=== PATIENT | male | born 2000 | race Asian ===

== ENCOUNTER 2024-11-14 16:42 | Inpatient (IN) | payer BC, OTHER ==
[~2024-11-14] VITALS: Ht 185.4 cm; Wt 74.8 kg
[2024-11-14 17:06] VITALS: O2SAT 100
[2024-11-14 17:49] LABS: HEMATOCRIT. 39.6 % (42.0-52.0); HEMOGLOBIN. 13.6 g/dL (14.0-18.0); MEAN PLATELET VOLUME 7.2 fl (7.4-10.4); PLATELET 227 x1000/uL (130-400); RED BLOOD CELL COUNT 4.48 mill/uL (4.7-6.1); RED CELL DISTRIBUTION WIDTH 13.2 % (11.6-14.6)
[2024-11-14 17:59] LABS: INR 1.0
[2024-11-14 18:03] LABS: CREATININE 0.8 mg/dL (0.6-1.3); UREA NITROGEN BLOOD 7 mg/dL (9-23)
[2024-11-14 18:04] LABS: TROPONIN I HIGH SENSITIVITY < 4 ng/L (3.0-53)
[2024-11-14 18:19] LABS: EOSINOPHILS % MANUAL 4.0 % (0.0-5.0); LYMPHOCYTES % MANUAL 32.0 % (20.0-50.0); MONOCYTES % MANUAL 7.0 % (2.0-8.0); NEUTROPHILS % MANUAL 57.0 % (45.0-75.0); PLATELET ESTIMATE NORMAL
[2024-11-15] MEDS: DEXT 5%/0.45% NACL KCL 20MEQ/L 1,000 ML IV SCH (06:10)
[2024-11-15 06:21] VITALS: BP 99/53; PULSE 65; RESP 16; TEMP 36.8072
[2024-11-15 08:00] VITALS: BP 103/67; PULSE 63; RESP 20; TEMP 36.2; O2SAT 99
[2024-11-15 11:37] LABS: BASOPHILS % 0.7 % (0.0-2.0); EOSINOPHILS % 3.6 % (0.0-5.0); HEMATOCRIT. 39.5 % (42.0-52.0); HEMOGLOBIN. 13.4 g/dL (14.0-18.0); LYMPHOCYTES % 35.3 % (20.0-50.0); MEAN PLATELET VOLUME 7.5 fl (7.4-10.4); MONOCYTES % 8.5 % (2.0-8.0); NEUTROPHILS % 51.9 % (40.0-76.0); PLATELET 234 x1000/uL (130-400); RED BLOOD CELL COUNT 4.45 mill/uL (4.7-6.1); RED CELL DISTRIBUTION WIDTH 13.1 % (11.6-14.6)
[2024-11-15] MEDS: DOCUSATE SODIUM 100MG CAPSULE PO SCH (14:18)
[2024-11-15] MEDS: HEMORRHOIDAL SUPP PR SCH (14:19)
[2024-11-15 17:10] VITALS: BP 100/69; PULSE 63; RESP 18; TEMP 97.7
== END 2024-11-15 18:48 | disposition home or self-care (01) | DRG 379 ==
LOC: ER 17:13 → EDBEDREQTM 23:41 → EDBEDREQ 23:41 → ENRESERV 11-15 00:09 → 7EST 11-15 02:20
PROVIDERS: ADMIT Internal Medicine; ATTEND Internal Medicine
DX: K62.5 Hemorrhage of anus and rectum (principal)
CPT/HCPCS: 36415; 80048; 84484; 85025; 86850; 86900; 93005; 99285